=== PATIENT | male | born 1990 | race Caucasian/White ===

== ENCOUNTER 2020-04-30 15:11 | Emergency (ER) | payer OTHER, SELFPAY ==
--- NOTE | 2020-04-30 15:15 | ED.GENADULT ---
HPI - General Adult General Chief complaint: Extremity Injury, Upper Stated complaint: Shoulders causing pain Time Seen by Provider: 04/30/20 15:15 Source: patient Mode of arrival: ambulatory Limitations: no limitations History of Present Illness HPI narrative: 30-year-old male patient presents to the [facility] with complaints of bilateral shoulder pain for several months now. Patient states he came in today because he feels like the pain is getting worse. Patient states he does a job that involves a lot of movement of his shoulders including overhead work. Patient states he has been taking ibuprofen but denies any heating pads, ice or stretching exercises. Patient denies any numbness or tingling down the arms or hands or fingertips. Related Data Allergies Allergy/AdvReac Type Severity Reaction Status Date / Time No Known Allergies Allergy Verified 04/30/20 15:29 Review of Systems Review of Systems: Narrative: CONSTITUTIONAL: Denies fever, chills, or sweats. EYES: Denies visual changes, redness, or discharge. ENT: Denies rhinorrhea, congestion, sore throat, or otalgia. CARDIOVASCULAR: Denies chest pain, palpitations, or edema. RESPIRATORY: Denies cough or dyspnea. GASTROINTESTINAL: Denies abdominal pain, nausea, vomiting, or diarrhea. GENITOURINARY: Denies dysuria or hematuria. SKIN: Denies rash or itching. MUSCULOSKELETAL: Denies back pain, joint pain, or myalgia. Positive bilateral shoulder pain NEUROLOGIC: Denies headache, numbness, or weakness. PSYCHIATRIC: Denies anxiety or depression. PMFSH Comments At the time of my signature I agree with nursing past medical history, surgical, social, and family history. There is no relevant family history pertinent to the presenting complaint. Exam Narrative: Exam Narrative: GENERAL: Well-appearing, well-nourished, and in no acute distress. HEAD: Normocephalic, atraumatic. EYES: PERRLA and EOMI. ENT: Nares clear, no rhinorrhea or epistaxis. Mucous membranes moist. NECK: Supple. No lymphadenopathy CHEST: Clear to auscultation. No respiratory distress. HEART: Regular rate and rhythm. No murmur heard. Normal peripheral pulses. ABDOMEN: Soft, nontender, nondistended, normal active bowel sounds. EXTREMITIES: The R and L shoulder is without obvious asymmetry or deformity when compared to the R exam L shoulder. No surface trauma, ecchymosis, crepitus. No bony deformity or prominence of the humeral head No erythema, warmth, swelling. no tenderness to palpation to clavicle, A to C joint, acromion, scapula or humeral head. No tenderness to palpation of the bicipital groove or soft tissues. No tenderness to palpation of the muscles of the sterncleidomastoid, pectorals, biceps/triceps, deltoid, trapezius, rhomboid, latissimus dorsi, rotator cuff. Patient also having tenderness to the anterior side of the front of the bilateral shoulders. Slight tenderness noted on palpation of the posterior scapula on bilateral sides. No pain or limitation with active or passive abduction/adduction, internal/external rotation, flexion/extension. Negative empty can and drop arm test (rotator cuff). No axillary tenderness or lymphadenopathy. Normal sensation over the deltoid and ability to flex arm at elbow indicates intact axillary nerve function. Distal motor and neurovascular status is intact. SKIN: Warm, dry, no rash. NEURO: No focal deficits. Alert and oriented x3. Course Vital Signs Vital signs: Vital Signs Temperature 36.8 C 04/30/20 15:20 Pulse Rate 80 04/30/20 15:20 Respiratory Rate 18 04/30/20 15:20 Blood Pressure 124/71 04/30/20 15:20 Pulse Oximetry 99 04/30/20 15:20 Temperature 36.8 C 04/30/20 15:20 Pulse Rate 80 04/30/20 15:20 Respiratory Rate 18 04/30/20 15:20 Blood Pressure 124/71 04/30/20 15:20 Pulse Oximetry 99 04/30/20 15:20 Vital signs reviewed. Medical Decision Making Differential Diagnosis Differential Diagnosis: Differential diagnosis: Neuro
[2020-04-30 15:20] VITALS: BP 124/71; PULSE 80; RESP 18; TEMP 36.8; O2SAT 99
== END 2020-04-30 15:50 | disposition home or self-care (01) ==
PROVIDERS: Emergency Provider Nurse Practitioner Family
DX: M75.42 Impingement syndrome of left shoulder (principal); M75.41 Impingement syndrome of right shoulder
CPT/HCPCS: 99213; G0463